=== PATIENT | female | born 1935 | race Caucasian/White ===

== ENCOUNTER 2017-01-15 10:08 | Emergency (ER) | payer OTHER ==
[2017-01-15 10:19] VITALS: BMI 28.5
[2017-01-15] MEDS ORDERED: CYCLOBENZAPRINE HCL 10 MG TABLET (FP) PO ONE (10:35)
--- NOTE | 2017-01-15 10:35 | PDOC ---
History of Present Illness <Karly Downs - Last Filed: 01/15/17 13:23> - General History Source: Patient Exam Limitations: No Limitations - History of Present Illness Initial Comments: 01/15/17 10:44 81y F hx of htn, dm, presents with complaint of R back pain for about 1 week. Pt states 1 week ago, she slippedin her tub and landed on her behind. Since then she has had intermittrent L buttock pain that radiates down her r leg - the pain is worse when she is sitting, improves when she is lying straight. Pt denies any numbness/tingling/weakness, but states it is making difficult for her to get around due to the pain. Pt last took tylenol at 6am. Pt denies any neck pain, midline back pain, urinary bowel incontinence, urinary sypmtoms, abd pain, cp, sob. Pt states she has had a history of back pain in the remote past that is simialr to today but has not had discomfort for several years. <Bj Beard - Last Filed: 01/15/17 13:38> - General Chief Complaint: Injury Stated Complaint: HIP PAIN Time Seen by Provider: 01/15/17 10:20 Past History <Karly Downs - Last Filed: 01/15/17 13:23> - Past Medical History Anemia: Yes Asthma: No Cancer: No Cardiac Disorders: No CVA: No COPD: No CHF: No Dementia: No Diabetes: Yes (DIET ONLY) GI Disorders: No Disorders: No HTN: Yes Hypercholesterolemia: No Liver Disease: No Suicide Attempt (Hx): No Seizures: No Thyroid Disease: No - Surgical History Abdominal Surgery: No Appendectomy: No Cardiac Surgery: No Cholecystectomy: No Lung Surgery: No Neurologic Surgery: No Orthopedic Surgery: Yes (RT KNEE REPLACEMENT) - Psycho/Social/Smoking Cessation Hx Anxiety: No Suicidal Ideation: No Smoking History: Never smoked Have you smoked in the past 12 months: No Information on smoking cessation initiated: No Hx Alcohol Use: No Drug/Substance Use Hx: No Substance Use Type: None Hx Substance Use Treatment: No <Bj Beard - Last Filed: 01/15/17 13:38> - Past Medical History Allergies/Adverse Reactions: Allergies Allergy/AdvReac Type Severity Reaction Status Date / Time No Known Allergies Allergy Verified 01/26/14 13:35 Home Medications: Ambulatory Orders Zolpidem Tartrate [Ambien] 10 mg PO HS 03/04/12 Calcium Citrate/Vitamin D3 [Calcitrate + Vit D Caplet] 1 each PO DAILY 01/15/17 Cyclobenzaprine HCl [Flexeril 10 mg] 10 mg PO BID PRN #30 tablet 01/15/17 Hydrochlorothiazide [Hctz -] 12.5 mg PO DAILY 01/15/17 Ibuprofen 400 mg PO QID #30 tablet 01/15/17 Lisinopril [Prinivil] 20 mg PO DAILY 01/15/17 Sitagliptin Phosphate [Januvia] 100 mg PO DAILY 01/15/17 Vits A,C,E/Lutein/Minerals [Ocuvite Tablet] 1 each PO DAILY 01/15/17 Review of Systems - Review of Systems Able to Perform ROS?: Yes Comments:: 01/15/17 11:19 Constitutional - no reported Fever, Chills, weakness, HEENT: no reported vision changes, sore throat Respiratory: no reported cough, sob, hemoptysis Cardiac: no reported chest pain, palpitations, light headedness, leg swelling Abd/GI: no reported abd pain, nausea, vomiting, blood per rectum, melena, diarrhea : no reported dysuria, frequency, discharge Musculskelatal - +r back/buttock pain radiates down to leg no reported joint swelling skin - no reported bruising, erythema, rash neurological: no reported headache, numbness, focal weakness, tingling, ataxia, weakness hematologic: no reported anemia, easy bruising, easy bleeding <Bj Beard - Last Filed: 01/15/17 13:38> *Physical Exam - Vital Signs Last Vital Signs Temp Pulse Resp BP Pulse Ox 98.5 F 57 L 17 128/69 98 01/15/17 13:21 01/15/17 13:21 01/15/17 13:21 01/15/17 13:21 01/15/17 13:21 <Karly Downs - Last Filed: 01/15/17 13:23> - Vital Signs Last Vital Signs Temp Pulse Resp BP Pulse Ox 97.8 F 60 16 172/73 100 01/15/17 10:14 01/15/17 10:14 01/15/17 10:14 01/15/17 10:14 01/15/17 10:14 - Physical Exam Comments: 01/15/17 11:19 GENERAL: The patient is awake, alert, and fully oriented, Nontoxic - in no acute distress. HEAD: Normocephalic, atraumatic. EYES: extraocular movements intact, sclera anicteric, conjunctiva clear. ENT: Normal voice, Moist mucous membranes. NECK: Normal range of motion, supple LUNGS: Breath sounds equal, clear to auscultation bilaterally. No wheezes, no rhonchi, no rales. HEART: Regular rate and rhythm, normal S1 and S2 without murmur, rub or gallop. ABDOMEN: Soft, nontender, normoactive bowel sounds. No guarding, no rebound. . No CVA tenderness EXTREMITIES: Normal range of motion, no edema. No clubbing or cyanosis. No cords, erythema, or tenderness. NEUROLOGICAL: No facial assymetry, Normal speech, PSYCH: Normal mood, normal affect. SKIN: Warm, Dry, normal turgor, BACK: no focal tenderness in cervical/thoracic/lumbar back, +reproducible tenderness in R buttock that radiates down R leg, no bruising, +SLR of R leg <Bj Beard - Last Filed: 01/15/17 13:38> ED Treatment Course - RADIOLOGY Radiograph Interpretation: 01/15/17 13:23 RAD/HIP PELVIS-RIGHT Right hip pain. Single AP view of the pelvis. 3 views of the right hip. Extensive chronic degenerative discogenic disease at L5-S1. Right pelvic calcification. Symmetrical bony trabecular pattern is seen in proximal femur bilaterally, femoral head and neck. Vascular calcifications are noted. No acute bony abnormality seen. No evidence of hip dislocation. Small symmetrical contour of the bilateral femoral heads. Sclerotic changes noted in the acetabulum bilaterally. Impression. Extensive chronic degenerative discogenic disease at L5-S1. Dextroscoliosis. No acute bony abnormalities are seen. If symptoms persist follow-up imaging may be considered including MRI. Reported By: Jay Antonio MD 01/15/17 1201 - Medications Given in the ED: ED Medications Discontinued Medications Generic Name Dose Route Start Last Admin Trade Name Freq PRN Reason Stop Dose Admin Cyclobenzaprine HCl 5 mg 01/15/17 10:35 01/15/17 12:03 Flexeril - PO 01/15/17 10:36 5 mg ONCE ONE Administration Ibuprofen 600 mg 01/15/17 10:35 01/15/17 12:10 Motrin - PO 01/15/17 10:36 600 mg ONCE ONE Administration <Karly Downs - Last Filed: 01/15/17 13:23> Medical Decision Making - Medical Decision Making 01/15/17 11:20 suspect sciatica based on location of pain and radiation of pain will give analgesia xray to r/o fx 01/15/17 13:38 xra y negaie pt feelnogi improved will dc with pmd fu return precautions were discussed I discussed the physical exam findings, ancillary test results and final diagnoses with the patient. I answered all of the patient's questions. The patient was satisfied with the care received and felt comfortable with the discharge plan and treatment plan. The patient will call their primary care physician within 24 hours to arrange follow-up and will return to the Emergency Department with any new, persistent or worsening symptoms. <Bj Beard - Last Filed: 01/15/17 13:38> *DC/Admit/Observation/Transfer <IsmajaymeKarly - Last Filed: 01/15/17 13:23> - Discharge Dispostion Admit: No <Bj Beard - Last Filed: 01/15/17 13:38> Diagnosis at time of Disposition: Sciatica Qualifiers: Laterality: right Qualified Code(s): M54.31 - Sciatica, right side - Discharge Dispostion Disposition: HOME Condition at time of disposition: Improved - Prescriptions Prescriptions: Cyclobenzaprine HCl [Flexeril 10 mg] 10 mg PO BID PRN #30 tablet PRN Reason: Back Pain Ibuprofen 400 mg PO QID #30 tablet - Referrals Referrals: Talya Rose [Primary Care Provider] - - Patient Instructions Printed Discharge Instructions: DI for Sciatica Additional Instructions: Return to the emergency department immediately with ANY new, persistent or worsening symptoms including numbness, tingling, weakness, fevers or any other concerns. Take ibuprofen (400mg)/tylenol(650mg) every 6 hours for 2 days. Take the flexeril up to twice daily if you still have pain/discomfort. Caution in using Valium as it may make you sleepy. Do not drive or put yourself in any position where you would be in danger. Apply heat to your sore muscles. You MUST call and follow up with your doctor tomorrow for further evaluation of your symptoms. Your emergency department visit is not complete without a followup with your doctor for reevaluation.. Results were discussed with you. Please make sure your doctor reviews the results of your emergency evaluation. Print Language: UKRAINIAN
[2017-01-15] MEDS ORDERED: IBUPROFEN 600 MG TABLET (FP) PO ONE (10:53)
[2017-01-15] MEDS: IBUPROFEN 600 MG TABLET (FP) PO ONE ×2 (10:56→12:10)
[2017-01-15 13:22] VITALS: BP 128/69; PULSE 57; TEMP 98.5
== END 2017-01-15 13:56 | disposition home or self-care (01) ==
LOC: JER 10:08
DX: M54.41 Lumbago with sciatica, right side (principal)
CPT/HCPCS: 73523-TC; 99282-25